=== PATIENT | female | born 2000 ===

== ENCOUNTER → 2018-04-04 | Outpatient (CLI) | payer OTHER ==
[2018-04-04 12:35] LABS: Source, Urine Clean Catch
[2018-04-04 14:09] LABS: Appearance, Urine Clear (Clear); Bilirubin, Urine Neg (Neg); Blood, Urine 4+ (Neg); Color, Urine Yellow (P-Yellow); Glucose Qualitative, Urine Neg (Neg); Ketones, Urine Neg (Neg); Leukocyte Esterase, Urine Neg (Neg); Nitrite, Urine Neg (Neg); Protein, Urine Neg (Neg); Urobilinogen, Urine NORM (Normal)
[2018-04-04 14:25] LABS: Bacteria Not Seen /hpf; Squamous Epithelial Cells Few /hpf (Few); White Blood Cells, Urine 0-2 /hpf (0-5)
[2018-04-05 13:49] LABS: Candida species (DNA Probe) Negative (NEGATIVE); G. vaginalis (DNA Probe) Negative (NEGATIVE); T. vaginalis (DNA Probe) Negative (NEGATIVE)
[2018-04-06 05:12] LABS: CHLAMYDIA TRACHOMATIS, NAA Negative (Negative); NEISSERIA GONORRHOEAE, NAA Negative (Negative)
== END ==
LOC: LAB 12:12 → LAB SHORT 12:12
PROVIDERS: Nurse Practitioner Family
DX: R30.0 Dysuria (principal); N89.8 Other specified noninflammatory disorders of vagina; A60.00 Herpesviral infection of urogenital system, unspecified
CPT/HCPCS: 81001; 87480; 87491; 87510; 87529; 87591; 87660

== ENCOUNTER → 2018-04-04 | Outpatient (CLI) | payer OTHER | END | disposition home or self-care (01) | LOC: LAB 10:39 → LAB SHORT 10:39 | PROVIDERS: Nurse Practitioner Family | DX: Z12.4 Encounter for screening for malignant neoplasm of cervix (principal) | CPT/HCPCS: G0145 ==

== ENCOUNTER → 2018-08-23 | Outpatient (CLI) | payer OTHER | END | disposition home or self-care (01) | LOC: LAB SHORT 19:59 → LAB 19:59 | DX: J02.9 Acute pharyngitis, unspecified (principal) | CPT/HCPCS: 87081 ==

== ENCOUNTER → 2021-03-01 | Outpatient (CLI) | payer OTHER ==
[2021-03-03 03:08] LABS: CHLAMYDIA TRACHOMATIS, NAA Negative (Negative)
== END | disposition home or self-care (01) ==
LOC: LAB SHORT 10:48
PROVIDERS: Student in an Organized Health Care Education/Training Program
DX: Z11.3 Encounter for screening for infections with a predominantly sexual mode of transmission (principal); J02.9 Acute pharyngitis, unspecified
CPT/HCPCS: 87081; 87491; 87591

== ENCOUNTER → 2023-10-22 | Outpatient (CLI) | payer OTHER ==
[2023-10-22 13:42] LABS: Source, Urine Clean Catch
[2023-10-22 16:11] LABS: U Amphetamine Screen Not Detected; U Barbituate Screen Not Detected; U Benzodiazapine Screen Not Detected; U Cocaine Screen Not Detected; U Methadone Screen Not Detected; U Methamphetamine Screen Not Detected; U Phencyclidine Screen Not Detected
[2023-10-22 16:12] LABS: U Buprenorphine Screen Not Detected; U Cannabinoids Screen DETECTED; U Opiates Screen Not Detected; U Oxycodone Screen Not Detected
[2023-10-22 16:18] LABS: Bacteria Many /hpf; Mucus Mod (0-Heavy); Red Blood Cells, Urine 0-2 /hpf (0-2); Squamous Epithelial Cells Mod /hpf (Few)
== END | disposition home or self-care (01) ==
LOC: LAB 13:38 → LAB SHORT 13:38
PROVIDERS: Advanced Practice Midwife
DX: Z34.81 Encounter for supervision of other normal pregnancy, first trimester (principal)
CPT/HCPCS: 81015; 87086

== ENCOUNTER → 2024-02-18 | Outpatient (CLI) | payer OTHER ==
[2024-02-18 13:17] LABS: Performing Lab IRL
== END | disposition home or self-care (01) ==
LOC: LAB 10:39 → LAB SHORT 10:39
PROVIDERS: Advanced Practice Midwife
DX: R76.8 Other specified abnormal immunological findings in serum (principal)
CPT/HCPCS: 36415

== ENCOUNTER → 2024-05-05 | Outpatient (CLI) | payer OTHER | LOC: LAB SHORT 11:57 → LAB 11:57 | DX: O09.90 Supervision of high risk pregnancy, unspecified, unspecified trimester (principal) | CPT/HCPCS: 87081; 87150 ==

== ENCOUNTER 2024-05-21 05:16 | Inpatient (IN) | payer OTHER ==
[2024-05-21] VITALS (25 sets, daily range): BP systolic 91–140; BP diastolic 50–75
[~2024-05-21] VITALS: Ht 162.6 cm; Wt 75.0 kg
[2024-05-21] MEDS ORDERED: FentaNYL Citrate 50 MCG/ML 2 ML Injection IV SCH (07:52)
[2024-05-21] MEDS ORDERED: FentaNYL Citrate 50 MCG/ML 2 ML Injection ONE ×2 (07:52→12:59)
[2024-05-21] MEDS ORDERED: FentaNYL 2mcg/ml-Bup 0.1% Epd 250 ML EPI PRN (08:10)
[2024-05-21] MEDS ORDERED: ePHEDrine Sulfate 50 MG/ML 1ML Injection XX PRN (08:10)
[2024-05-21] MEDS ORDERED: Carboprost Tromethamine 250 MCG/ML 1ML Amp IM PRN (08:10)
[2024-05-21] MEDS ORDERED: Misoprostol 200 MCG Tab BC PRN ×2 (08:10→19:40)
[2024-05-21] MEDS ORDERED: Lactated Ringer's 1,000 ML IV PRN ×3 (08:10)
[2024-05-21] MEDS ORDERED: OXYTOCIN/RINGER'S LACTATE 500 ML IV PRN (08:10)
[2024-05-21] MEDS ORDERED: Misoprostol 200 MCG Tab PR PRN (08:10)
[2024-05-21] MEDS ORDERED: Acetaminophen 500 MG Tab PO PRN (08:10)
[2024-05-21] MEDS ORDERED: Ondansetron HCl 2 MG / ML 2ML Vial IV PRN ×2 (08:10→16:35)
[2024-05-21] MEDS ORDERED: Methylergonovine Maleate 0.2MG / ML 1ML Amp IM PRN ×2 (08:10→19:45)
[2024-05-21] MEDS ORDERED: Oxytocin 10 Unit / ML Vial IM PRN (08:10)
[2024-05-21] MEDS ORDERED: Tranexamic Acid 100 ML IV PRN (08:15)
[2024-05-21] MEDS ORDERED: Calcium Carbonate 500 MG Tab Chew PO PRN (08:15)
[2024-05-21 08:26] LABS: BASOPHILS ABSOLUTE AUTO 0.02 K/mm3 (0.00-0.23); BASOPHILS PERCENT AUTO 0 % (0-2); EOSINOPHILS ABSOLUTE AUTO 0.07 K/mm3 (0.00-0.68); EOSINOPHILS PERCENT AUTO 1 % (0-6); Hematocrit 28.9 % (33.0-51.0); Hemoglobin 9.7 g/dL (11.5-16.0); IMMATURE GRAN ABSOLUTE AUTO 0.04 K/mm3 (0.00-0.10); IMMATURE GRAN PERCENT AUTO 1 % (0-1); LYMPHOCYTES ABSOLUTE AUTO 2.14 K/mm3 (0.84-5.20); LYMPHOCYTES PERCENT AUTO 27 % (21-46); MONOCYTES ABSOLUTE AUTO 0.86 K/mm3 (0.16-1.47); MONOCYTES PERCENT AUTO 11 % (4-13); Mean Corpuscular HGB 29.4 pg (26.0-34.0); Mean Corpuscular HGB Conc 33.6 g/dL (31.5-36.5); Mean Corpuscular Volume 88 fL (80-100); Mean Platelet Volume 11.7 fL (9.1-12.4); NEUTROPHILS ABSOLUTE AUTO 4.91 K/mm3 (1.96-9.15); NEUTROPHILS PERCENT AUTO 61 % (41-73); Platelet Count 255 K/mm3 (150-400); RDW Coefficient Variation 13.9 % (11.7-14.2); White Blood Cell Count 8.04 K/mm3 (4.00-11.30)
[2024-05-21] MEDS ORDERED: FentaNYL Citrate 50 MCG/ML 2 ML Injection IV PRN (13:10)
[2024-05-21] MEDS ORDERED: Metoclopramide HCl 5MG / ML 2ML Vial IV PRN (16:35)
[2024-05-21] MEDS ORDERED: DiphenhydrAMINE HCl 50 MG/ML 1ML Vial IV PRN (16:35)
[2024-05-21] MEDS ORDERED: ePHEDrine Sulfate 50 MG/ML 1ML Injection IV PRN (16:35)
[2024-05-21] MEDS ORDERED: Naloxone HCl 0.4MG / ML 1ML Vial IV PRN (16:35)
[2024-05-21] MEDS ORDERED: Ondansetron HCl 2 MG / ML 2ML Vial IV ONE (19:25)
[2024-05-21] MEDS ORDERED: Docusate Sodium 100 MG Cap PO PRN (19:40)
[2024-05-21] MEDS ORDERED: Lanolin Cream TOP PRN (19:40)
[2024-05-21] MEDS ORDERED: Acetaminophen 325 MG TABLET PO PRN (19:40)
[2024-05-21] MEDS ORDERED: OXYTOCIN/RINGER'S LACTATE 500 ML IV SCH (19:40)
[2024-05-21] MEDS ORDERED: Witch Hazel/Glycerin PADS TOP PRN (19:40)
[2024-05-21] MEDS ORDERED: Ibuprofen 400 MG Tab PO PRN (19:40)
[2024-05-21] MEDS ORDERED: Ketorolac Tromethamine 30mg Vial IV PRN (19:45)
[2024-05-21] MEDS ORDERED: Benzocaine Topical Anesthetic Spray 60GM TOP PRN (19:45)
[2024-05-21] MEDS ORDERED: Lactated Ringer's 1,000 ML IV SCH (19:45)
[2024-05-22 02:58] VITALS: BP 114/64
[2024-05-22 07:49] VITALS: BP 101/67
[2024-05-22] MEDS ORDERED: Prenatal Vit/FE Fumarate/FA 1 Tab PO SCH (09:00)
[2024-05-22 12:03] VITALS: BP 120/56
[2024-05-22 19:23] VITALS: BP 118/76
[2024-05-22 23:43] VITALS: BP 115/68
[2024-05-23 04:12] VITALS: BP 116/71
[2024-05-23 07:23] VITALS: BP 115/77
== END 2024-05-23 14:10 | disposition home or self-care (01) | DRG 806 ==
LOC: OBS 05:16 → BC 05:18 → OBS 07:43 → BC 07:45
PROVIDERS: ADMIT Advanced Practice Midwife
PROC: 10E0XZZ Delivery of Products of Conception, External Approach (ICD-10-PCS; principal; 2024-05-21)
PROC: 10907ZC Drainage of Amniotic Fluid, Therapeutic from Products of Conception, Via Natural or Artificial Opening (ICD-10-PCS; 2024-05-21)
DX: O99.344 Other mental disorders complicating childbirth (principal); O99.324 Drug use complicating childbirth; Z37.0 Single live birth; F12.90 Cannabis use, unspecified, uncomplicated; Z3A.37 37 weeks gestation of pregnancy; F39 Unspecified mood [affective] disorder; F41.8 Other specified anxiety disorders; F43.10 Post-traumatic stress disorder, unspecified; F44.81 Dissociative identity disorder; Z71.51 Drug abuse counseling and surveillance of drug abuser; Z87.68 Personal history of other (corrected) conditions arising in the perinatal period
CPT/HCPCS: 36415; 51702; 59025; 81003; 85025; 86850; 86870; 86900; 86901; 99214; A9270; J1885; J2405; J2590; J3010; J7120